=== PATIENT | male | born 1975 | race African-American/Black ===

== ENCOUNTER 2021-03-23 14:06 | Emergency (ER) | payer OTHER ==
[~2021-03-23] VITALS: Ht 188 cm; Wt 143.0 kg
[2021-03-23 17:27] VITALS: BP 158/77
== END 2021-03-23 17:37 | disposition home or self-care (01) | DRG 90 ==
LOC: ED 14:06
DX: S06.0X1A Concussion with loss of consciousness of 30 minutes or less, initial encounter (principal); J45.909 Unspecified asthma, uncomplicated; V78.1XXA Passenger on bus injured in noncollision transport accident in nontraffic accident, initial encounter; Y99.0 Civilian activity done for income or pay